=== PATIENT | male | born 1980 | race Caucasian/White ===

== ENCOUNTER 2022-10-09 10:09 | Emergency (ER) | payer BC, SELFPAY ==
--- NOTE | ~2022-10-09 | CT_ITS ---
EXAMINATION: CT ABDOMEN AND PELVIS WITHOUT CONTRAST CLINICAL INFORMATION: Right-sided flank pain COMPARISON: None available. TECHNIQUE: Multidetector volumetric imaging was performed from the superior aspect of the liver through the pubic symphysis. Sagittal and coronal reformatted images were obtained on the technologist's workstation. This CT examination was performed using dose optimization techniques as appropriate, variously including the following: *Automated exposure control *Adjustment of mA and/or kV according to patient size (this includes techniques or standardized protocols for targeted exams where dose is matched to indication/reason for exam; i.e. extremities or head) *Use of iterative reconstruction technique DLP: 593 mGy-cm FINDINGS: LUNG BASES: The visualized lung bases are unremarkable. LIVER, GALLBLADDER, AND BILIARY TREE: The liver is normal in size, shape, and attenuation. Some tiny benign subcentimeter hepatic cysts are present. No worrisome solid focal hepatic lesion or biliary ductal dilatation is present. The gallbladder is contracted and there is a question of high density material in the gallbladder suggesting gallstones. Fasting gallbladder ultrasound is recommended for further evaluation if clinically relevant. PANCREAS: Unremarkable. SPLEEN: Unremarkable. ADRENAL GLANDS: Unremarkable. KIDNEYS AND URETERS: Right: There is a 0.9 cm obstructing stone at the right ureteropelvic junction with mild associated right renal hydronephrosis. No other right-sided calculi are seen. The stone measures 840 Hounsfield units and is about 11 cm from the posterior axillary line. A benign 2.8 cm Bosniak class I renal cyst is noted which requires no additional imaging or follow-up. No solid renal masses are seen. The right ureter appears normal. Left: The left kidney appears appears normal aside from the presence of a 5 mm nonobstructing upper pole calculus. No hydronephrosis or renal masses are seen. The left ureter appears normal. BLADDER: Unremarkable. GASTROINTESTINAL TRACT: The small and large bowel are unremarkable. The appendix is unremarkable. ABDOMINAL WALL: No significant hernia is appreciated. Small bilateral inguinal hernias are seen containing fat. LYMPH NODES: Normal. VASCULAR: Unremarkable. PELVIC VISCERA: Mild enlargement of the prostate with normal-appearing seminal vesicles. OSSEOUS STRUCTURES: Unremarkable. CT/CT abdomen pelvis wo IV con IMPRESSION: 1. Obstructing 0.9 cm right ureteropelvic junction stone with mild hydronephrosis. 2. Nonobstructing 5 mm left renal calculus. 3. Incidental note made of hepatic cysts, contracted gallbladder with question of gallstones, mild BPH and small bilateral inguinal hernias containing fat. Fleischner guidelines were followed.
[2022-10-09 10:27] VITALS: BP 102/62; PULSE 61; RESP 16; TEMP 36.9; O2SAT 98; BMI 31.8
[2022-10-09 11:04] LABS: MANUAL DIFF FLAG NO
[2022-10-09 11:12] LABS: Basophils Percent Auto 0.5 % (0-2); Eosinophils Absolute Auto 0.1 X10*3/uL (0.0-0.4); Eosinophils Percent Auto 0.6 % (0-4); Hematocrit 41.5 % (42.0-52.0); Hemoglobin 14.3 g/dl (14.0-18.0); Imm Gran Abs Auto 0.04 X10*3/uL (0.00-0.03); Imm Gran Pct Auto 0.5 % (0.0-0.4); Lymphocytes Absolute Auto 1.4 X10*3/uL (1.2-4.9); Lymphocytes Percent Auto 15.5 % (20-40); Mean Corpuscular HGB Conc 34.5 g/dl (31.0-36.0); Mean Corpuscular Hemoglobin 29.4 pg (27.0-33.0); Mean Corpuscular Volume 85.2 fL (80.0-98.0); Mean Platelet Volume 10.3 fL (9.4-12.4); Monocytes Absolute Auto 0.5 X10*3/uL (0.1-1.2); Monocytes Percent Auto 5.7 % (2-11); Neutrophils Absolute Auto 6.7 x10*3/uL (2.0-8.3); Neutrophils Percent Auto 77.2 % (45-73); Platelet Count 197 X10*3/uL (160-400); Red Blood Count 4.87 X10*6/uL (4.60-5.80); Red Cell Distribution Width 12.5 % (11.0-16.0); White Blood Count 8.7 X10*3/uL (4.8-10.8)
[2022-10-09 11:23] LABS: Alanine Aminotransferase 18 U/L (0-40); Alkaline Phosphatase 70 U/L (39-117); Anion Gap 10 (12-20); Aspartate Amino Transferase 18 U/L (5-37); Bilirubin Total 0.5 mg/dL (0.0-1.0); Blood Urea Nitrogen 16 mg/dL (9-16); Calcium 9.5 mg/dL (8.4-10.2); Carbon Dioxide 25 mmol/L (22-29); Chloride 108 mmol/L (96-108); Creatinine Clr Calc Pharmacy 105.9; Estimated Glomerular Filt Rate > 60; Glucose Random 107 mg/dL (60-115); Potassium 4.3 mmol/L (3.3-5.1); Sodium 139 mmol/L (135-145); Total Protein 6.7 g/dL (6.5-8.0)
[2022-10-09 12:25] VITALS: BP 121/71; PULSE 60; RESP 18; TEMP 36.8; O2SAT 99
--- NOTE | 2022-10-09 12:27 | PC.NURSE ---
triage re-assessment, pt remains unable to pee. RME completed at this time
--- NOTE | 2022-10-09 12:30 | ED_ITS ---
HPI - Male Genitourinary General Chief complaint: Urogenital-Male Stated complaint: back pain blood in urine Time Seen by Provider: 10/09/22 12:56 Source: patient, RN notes reviewed and old records reviewed Mode of arrival: ambulatory History of Present Illness HPI Narrative: 42-year-old male with past medical history of renal stones presenting to the ED complaining of nonradiating right-sided low back pain, hematuria, urinary hesitancy, & nausea x 2 days. Reports straining to urinate. Denies fever/chills, vomiting, diarrhea, dysuria, urinary incontinence/retention, injury. Admits pain feels similar to prior renal stones Onset (ago): day(s) Related Data Previous Rx's Medication Instructions Recorded naproxen 375 mg tablet 375 mg PO BID PRN pain 14 days #28 10/09/22 tabs prednisone 20 mg tablet 20 mg PO BID 3 days #6 tabs 10/09/22 tamsulosin 0.4 mg capsule (Flomax) 0.4 mg PO DAILY #21 caps 10/09/22 Allergies Allergy/AdvReac Type Severity Reaction Status Date / Time No Known Allergies Allergy Verified 10/09/22 10:34 Review of Systems Review of Systems: Constitutional: No Fever, No Chills, No Fatigue, No Malaise ENT/Mouth: No Hearing loss, No Ear Pain, No sore throat, No Rhinorrhea, No Swallowing Difficulty Eyes: No Eye Pain, No Swelling, No Redness, No Vision Changes Cardiovascular: No Chest Pain, No SOB Respiratory: No Cough, No Sputum, No Dyspnea Gastrointestinal: + Nausea, No Vomiting, No Diarrhea, No Constipation, No Abdominal pain Genitourinary: No irregular bleeding, No Dysuria, No Urinary Frequency, + Hematuria, No Urinary Incontinence/retention, No Flank Pain, No Urinary Flow Changes, + Hesitancy Musculoskeletal: No joint pain, No Myalgias, No Joint Swelling Skin: No Skin Lesions, No rash Neuro: No Weakness, No Headache Yes all other systems are reviewed and are negative Constitutional: Constitutional: Reports as per [facility] Past Medical History Attestation statement: The following information was validated with the patient. Source: old records reviewed Social History Social History Alcohol intake: current Alcohol intake frequency: a few times a week Smoked in Last 30 Days: No Use of substances other than those prescribed or required for medical reasons: No Advance Directives: No Advance Directives Information Provided: No Physical Exam Vital Signs: Vital Signs: Last Vital Signs Temp 98.2 F 10/09/22 12:25 Pulse 62 10/09/22 13:10 Resp 18 10/09/22 13:10 BP 123/68 10/09/22 13:10 Pulse Ox 99 10/09/22 12:25 O2 Del Method Room Air 10/09/22 12:25 BMI result Body Mass Index 31.8 Const: General: cooperative, healthy appearing and no acute distress O rientation/consciousness: patient oriented x3 Limitations: no limitations HEENT: Head: Yes normal to inspection and Yes atraumatic Ears: hearing grossly normal bilaterally General nose exam: Normal external nose present Face and sinus: Yes normal facial exam Eyes: General: appearance normal, both eyes and all related structures EOM: EOMs intact bilaterally Neck: Neck: Yes normal visual inspection and Yes no meningeal signs Resp: Effort & Inspection: normal respiratory effort and no respiratory distress Auscultation: clear to auscultation bilaterally Cardio: Rate: regular rate Heart sounds: S1 normal heart sound present and S2 normal heart sound present GI: Inspection: Yes normal to inspection Palpation (GI): Soft to palpation, nontender, no guarding and not rigid : General: Yes no CVA tenderness Back/Spine/Pelvis: Other: No midline cervical/thoracic/lumbar spinous tenderness/step-off or deformity. Back pain not reproducible. No rash/erythema or ecchymosis Back: no CVA tenderness Skin: Rashes: no rashes Wounds: no wounds Neuro: Other: Strength intact throughout. No saddle anesthesia. Sensation intact to light touch. Neurovascular intact distally General: patient oriented x3, gait normal, tone normal, moves all extremities, no meningeal signs, no focal motor deficits and CN's II-XI intact bilaterally Gait exam (Neuro): Normal gait present Motor exam (neuro): 5/5 motor strength present throughout Extrem: General: Yes normal to inspection Course Course Course Narrative: This is an RME: Additional HPI, ROS, PE not included below will be deferred to primary provider. 42 yo M presents w/ right sided flank pain and difficulties w/ urination X3 days. 2 days ago noted blood in urine. Concerned he has a kidney stone hx of this. No fevers or chills Plan: labs, UA, imaging -1418--no leukocytosis. Labs otherwise reassuring. UA with blood/rbc's, not infected CT abdomen pelvis wo IV con IMPRESSION: 1.? Obstructing 0.9 cm right ureteropelvic junction stone with mild hydronephrosis. 2.? Nonobstructing 5 mm left renal calculus. 3.? Incidental note made of hepatic cysts, contracted gallbladder with question of gallstones, mild BPH and small bilateral inguinal hernias containing fat. ? Fleischner guidelines were followed. -On re-evaluation patient is sleeping comfortably. Reports symptomatic improvement > will consult urology, Dr. Campos > she recommended if we can get patient comfortable to discharge with prednisone 20 mg b.i.d. x3 days, Flomax 0.4 mg daily times 21 days, naproxen 375 mg b.i.d., and follow up in the office in 7-10 days -patient feels safe for discharge home at this time. 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 Discussed strict return precautions and when to return to the ED pertaining to renal stone, and need close follow-up with Urology. Also discussed hepatic cyst/gallstones and inguinal hernias, recommended GI and PCP follow-up Results discussed with patient including worrisome signs and symptoms and strict return precautions, and when to return to the emergency department. They verbalized understanding and feel safe for discharge at this time. Medications Administered Discontinued Medications Generic Name Dose Route Start Last Admin Trade Name Freq PRN Reason Stop Dose Admin Ketorolac Tromethamine 30 mg 10/09/22 13:10 10/09/22 13:17 Ketorolac Tromethamine 30 Mg/Ml Vial IM 10/09/22 13:11 30 mg ONCE ONE Administration Ondansetron HCl 4 mg 10/09/22 13:10 10/09/22 13:18 Ondansetron Odt 4 Mg Tab.Rapdis TRANSLINGU 10/09/22 13:11 4 mg ONCE ONE Administration Medical Decision Making Medical Decision Making MDM Narrative: 42-year-old male with past medical history of renal stones presenting to the ED complaining of nonradiating right-sided low back pain, hematuria, urinary hesitancy, & nausea x 2 days. On exam vital signs stable, NAD, nontoxic appearing, abdomen soft/nontender, no CVAT, back pain not reproducible, no saddle anesthesia. Concern for renal colic/stone vs UTI/pyelo vs MSK pain/strain. Lower suspicion for appendicitis/diverticulitis, cholecystitis/lithiasis, cauda equina or cord compression Plan: Labs, UA, CT, IM Toradol, Zofran, re-evaluate Please refer to course for remaining clinical decision making, interpretation of labs/imaging results, and discussions with consultants and/or family members. Differential Diagnosis Differential Diagnoses: The differential diagnosis associated with the presentation includes As above Admission/Observation Consideration of admission/observation: Escalation of care including admission/observation considered Consult Healthcare Provider Management of the patient was discussed with: [employer]inter (Urology Dr. Campos) Lab Data MDM Lab Attestation statement: I reviewed the patient's lab results. 10/09/22 11:01 10/09/22 11:01 Labs: Lab Results 10/09/22 10/09/22 10/09/22 Range/Units 11:01 11:01 13:14 WBC 8.7 (4.8-10.8) X10*3/uL RBC 4.87 (4.60-5.80) X10*6/uL Hgb 14.3 (14.0-18.0) g/dl Hct 41.5 L (42.0-52.0) % MCV 85.2 (80.0-98.0) fL MCH 29.4 (27.0-33.0) pg MCHC 34.5 (31.0-36.0) g/dl RDW 12.5 (11.0-16.0) % Plt Count 197 (160-400) X10*3/uL MPV 10.3 (9.4-12.4) fL Immature Gran % (Auto) 0.5 H (0.0-0.4) % Neut % (Auto) 77.2 H (45-73) % Lymph % (Auto) 15.5 L (20-40) % [place] % (Auto) 5.7 (2-11) % Eos % (Auto) 0.6 (0-4) % Baso % (Auto) 0.5 (0-2) % Lymph # (Auto) 1.4 (1.2-4.9) X10*3/uL [place] # (Auto) 0.5 (0.1-1.2) X10*3/uL Eos # (Auto) 0.1 (0.0-0.4) X10*3/uL Baso # (Auto) 0.0 (0.0-0.2) X10*3/uL Abs Immat Gran (auto) 0.04 H (0.00-0.03) X10*3/uL Absolute Neuts (auto) 6.7 (2.0-8.3) x10*3/uL Absolute Nucleated RBC 0.000 (0.0-0.012) X10*3/uL Nucleated RBC % (auto) 0.0 (0.0-0.2) /100WBC Sodium 139 (135-145) mmol/L Potassium 4.3 (3.3-5.1) mmol/L Chloride 108 (96-108) mmol/L Carbon Dioxide 25 (22-29) mmol/L Anion Gap 10 L (12-20) BUN 16 (9-16) mg/dL Creatinine 0.97 (0.5-1.4) mg/dL Estim Creat Clear Calc 105.9 Estimated GFR > 60 Random Glucose 107 (60-115) mg/dL Calcium 9.5 (8.4-10.2) mg/dL Total Bilirubin 0.5 (0.0-1.0) mg/dL AST 18 (5-37) U/L ALT 18 (0-40) U/L Alkaline Phosphatase 70 (39-117) U/L Total Protein 6.7 (6.5-8.0) g/dL Albumin 4.0 (3.5-5.0) g/dL Lipase 15 (8-78) U/L Urine Color Yellow Urine Appearance Clear Urine pH 6.5 (5.0-9.0) Ur Specific [place] >= 1.030 H (1.005-1.025) Urine Protein 30 (1+) H (Neg-Trace) mg/dL Urine Glucose (UA) Negative (Negative) mg/dL Urine Ketones Trace (Negative) mg/dL Urine Blood Moderate (2+) H (Negative) Urine Nitrite Negative (Negative) Ur Leukocyte Esterase Negative (Negative) Urine RBC >20 H (0-2) /HPF Urine WBC 0-5 (0-5) /HPF Ur Squamous Epith Cells 0-2 (0-2) /HPF Urine Bacteria None Seen (None Seen) Hyaline Casts 0-2 (0-2) /LPF Radiology Impression Discussion of test interpretation with radiology: I have reviewed the radiologist's reading. External Record Review External record reviewed: Inpatient record, Office record, Outpatient record, Prior outpatient labs, Prior outpatient radiology, Primary care record and Outside ED record Tests considered The following testing was considered but not selected: As above Prescription Management I considered prescription management with: Pain Medication Discharge Plan Discharge Clinical Impression: Obstruction of right ureteropelvic junction (UPJ) due to stone, Bilateral inguinal hernia, Hepatic cyst, Gallbladder contraction Patient Disposition: Home, Self-Care Instructions: Inguinal Hernia (ED), Ureteral Stones (ED) Additional Instructions: Your blood work is reassuring. your CT scan shows an obstructing 0.9 cm stone on your right side. You also have incidental findings of hepatic cysts, gallstones, and small bilateral inguinal hernias Prednisone as a steroid which will help with inflammation. Naproxen as anti- inflammatory pain medication, take with food Flomax will help dilate your ureter to aid with stone passage YOU NEED TO FOLLOW-UP WITH UROLOGY IN 7-10 DAYS If your symptoms persist/become a bearable, persistent nausea/vomiting, fever, your unable to urinate return to the ED Avoid heavy lifting with her hernias You should follow-up with Gastroenterology/general surgery and your PCP Sol an?lisis de pato es tranquilizador. sol tomograf?a computarizada muestra un c?lculo obstructivo de 0,9 cm en sol lado derecho. Tambi?n tiene hallazgos incidentales de quistes hep?ticos, c?lculos biliares y lucia?as hernias inguinales bilaterales. Prednisona rafi un esteroide que ayudar? con la inflamaci?n. Naproxeno rafi analg?sico antiinflamatorio, julio cesar con alimentos Flomax ayudar? a dilatar sol ur?ter para ayudar con el paso de c?lculos NECESITAS SEGUIMIENTO CON UROLOG?A EN 7-10 D? Si hope s?ntomas persisten/se vuelven soportables, n?useas/v?mitos persistentes, fiebre, no puede orinar, regrese al servicio de urgencias. Evite levantar objetos pesados ??con hope hernias Debe realizar un seguimiento con Gastroenterolog?a/cirug?a general y sol PCP Prescriptions: New prednisone 20 mg tablet 20 mg PO BID 3 Days Qty: 6 0RF tamsulosin [Flomax] 0.4 mg capsule 0.4 mg PO DAILY Qty: 21 0RF naproxen 375 mg tablet 375 mg PO BID PRN (Reason: pain) 14 Days Qty: 28 0RF Referrals: [facility] [place] Group] [facility] [place] Group] - 1 week (7-10 days) Stand Alone Forms: Work/School Release Interventions: ED Discharge Assessment Last Done: 10/09/22 15:26 Print Language: Tunisian
[2022-10-09 13:10] VITALS: BP 123/68; PULSE 62; RESP 18
[2022-10-09] MEDS: Ketorolac Tromethamine 30 MG/ML VIAL IM (13:17)
[2022-10-09] MEDS: Ondansetron ODT 4 MG TAB.RAPDIS TRANSLINGU (13:18)
[2022-10-09 13:22] LABS: Lipase 15 U/L (8-78)
[2022-10-09 13:29] LABS: Appearance Urine Clear; Color Urine Yellow; Glucose Urine UA Negative (Negative); Leukocyte Esterase Urine Negative (Negative); Nitrite Urine Negative (Negative); PH 6.5 (5.0-9.0); Specific Gravity - Urine >= 1.030 (1.005-1.025); UMIC TRIGGER UACC YES; Urine Blood Moderate (2+) (Negative); Urine Ketones Trace mg/dL (Negative); Urine Protein 30 (1+) mg/dL (Neg-Trace)
[2022-10-09 13:38] LABS: Bacteria Urine None Seen (None Seen); Hyaline Casts Urine 0-2 /LPF (0-2); RBC Urine >20 /HPF (0-2); Squamous Epithelial Cell Urine 0-2 /HPF (0-2); WBC Urine 0-5 /HPF (0-5)
== END 2022-10-09 15:26 | disposition home or self-care (01) ==
PROVIDERS: Physician Assistant; Emergency Provider Emergency Medicine
DX: N13.5 Crossing vessel and stricture of ureter without hydronephrosis (principal); N20.1 Calculus of ureter; K40.20 Bilateral inguinal hernia, without obstruction or gangrene, not specified as recurrent; K76.89 Other specified diseases of liver; K82.0 Obstruction of gallbladder; R31.9 Hematuria, unspecified; M54.50 Low back pain, unspecified; R39.11 Hesitancy of micturition; R11.0 Nausea; Z87.442 Personal history of urinary calculi
CPT/HCPCS: 36415; 74176; 80053; 81001; 83690; 85025; 96372; 99284; J1885

== ENCOUNTER 2022-11-07 12:36 | Outpatient (AMB) | payer BC, SELFPAY ==
--- NOTE | 2022-11-07 13:04 | MHC.OFFVIS ---
Intake Intake Visit Reasons: ER follow up-UPJ obstructing stone Intake Note: New Patient presents for ER follow up UPJ obstructing stone Urology Medications: none Blood Thinner: none Egg Caser Required: No Accompanied by: Self / Same As Patient Allergies No Known Allergies Allergy (Verified 11/10/22 13:49) Medication List - Last Reconciled 11/10/22 by BASIM Hampton No Known Home Meds HPI HPI Comments History of Present Illness Details Prince is a very pleasant 42-year-old male patient. He presents to the office today as new patient for nephrolithiasis. He reports approximately one month ago seeking emergency room care for right sided flank pain at which time was instructed to follow-up with Urology for findings of nephrolithiasis on CT. These results were reviewed with the patient today. Obstructing 0.9 right ureteropelvic junction stone with mild hydronephrosis. Nonobstructing 5 mm left renal calculus. Mild BPH and small bilateral inguinal hernias are noted. When asked patient reports continued right-sided flank pain. He denies any previous history of nephrolithiasis and or surgical history of nephrolithiasis. Discussed at length potential causes for nephrolithiasis. Discussed given pain and noted hydronephrosis surgical intervention for treatment of stone. Discussed at length importance of drinking plenty of water daily. Patient otherwise denies any urinary issues or concerns at this time. He denies urinary urgency, urinary frequency, incontinence, nocturia, hematuria, dysuria, foul smelling urine, changes to urinary stream, fever, and or chills. He is happy with his current voiding parameters. Discussed at length cystoscopy, retrograde, ureteroscopy, possible lithotripsy/stone basketing and stent on the right side. Discussed risks and benefits of the surgical procedure. All questions were answered. Patient otherwise denies any issues or concerns at this time. [facility] Social History Alcohol intake: current Alcohol intake frequency: a few times a week Review of Systems Const All systems reviewed & are unremarkable except as noted in HPI and below Reports no additional complaints Eyes Reports no additional complaints ENT Reports no additional complaints Card Reports no additional complaints Resp Reports no additional complaints GI Reports no additional complaints Reports as per HPI Musc Reports no additional complaints Neuro Reports no additional complaints Psych Reports no additional complaints Endo Reports no additional complaints Rafa/Lymph Reports no additional complaints Aller/Immun Reports no additional complaints Physical Exam Const General: cooperative, healthy appearing, comfortable, no acute distress, well developed, alert and awake Orientation/consciousness: patient oriented x3 Limitations: no limitations HEENT Head: Yes normal to inspection, Yes normocephalic and Yes atraumatic Ears: hearing grossly normal bilaterally Eyes General: appearance normal, both eyes and all related structures Neck Neck: Yes normal visual inspection and Yes trachea midline Chest Chest palpation & inspection: normal inspection of the chest Resp Effort & Inspection: normal respiratory effort and able to speak in complete sentences Cardio Rate: regular rate GI Inspection: Yes normal to inspection General: Yes CVA tenderness bilateral Back/Spine/Pelvis Back: CVA tenderness Skin General skin exam: no rashes or lesions noted Neuro General: patient oriented x3 Extrem General: Yes normal to inspection Psych Appearance: grossly normal and well kempt Mental Status: mental status grossly normal Speech and movement: Normal speech and movement present and Clear speech present Affect: normal affect Attitude: cooperative Thought process: Normal thought process present Thought content: Normal thought content present Insight: Good insight present (Psych) Judgement: Good judgement present (Psych) Results AMB Urinalysis, Automated UA Leukoctes 0 Dyllan/uL Last Edit by [employer] on 11/07/22 13:27 UA Nitrite Last Edit by [employer] on 11/07/22 13:27 UA Urobilinogen 0.2 mg/dL Last Edit by [employer] on 11/07/22 13:27 UA Protein 0 mg/dL Last Edit by [employer] on 11/07/22 13:27 UA pH 7.0 Last Edit by [employer] on 11/07/22 13:27 UA Blood 0 Sher/uL Last Edit by [employer] on 11/07/22 13:27 UA Specific [place] 1.015 Last Edit by [employer] on 11/07/22 13:27 UA Ketone Negative Last Edit by [employer] on 11/07/22 13:27 UA Bilirubin 0 mg/dL Last Edit by [employer] on 11/07/22 13:27 UA Glucose 0 mg/dL Last Edit by [employer] on 11/07/22 13:27 Results Reviewed Results Reviewed: Laboratory Last Values Urine pH (Auto) 7.0 11/07/22 13:06 Specific [place] (Auto) 1.015 11/07/22 13:06 Urine Protein (Auto) 0 mg/dL 11/07/22 13:06 Glucose (UA)(Auto) 0 mg/dL 11/07/22 13:06 Urine Ketones (Auto) Negative 11/07/22 13:06 Urine Blood (Auto) 0 Sher/uL 11/07/22 13:06 Urine Bilirubin (Auto) 0 mg/dL 11/07/22 13:06 Urine Urobilinogen (Auto) 0.2 mg/dL 11/07/22 13:06 Leukocyte Esterase (Auto) 0 Dyllan/uL 11/07/22 13:06 Date of Service: 10/09/22 EXAMINATION: CT ABDOMEN AND PELVIS WITHOUT CONTRAST? FINDINGS: LUNG BASES: The visualized lung bases are unremarkable.? LIVER, GALLBLADDER, AND BILIARY TREE: The liver is normal in size, shape, and attenuation. Some tiny benign subcentimeter hepatic cysts are present. No worrisome solid focal hepatic lesion or biliary ductal dilatation is present. The gallbladder is contracted and there is a question of high density material in the gallbladder suggesting gallstones. Fasting gallbladder ultrasound is recommended for further evaluation if clinically relevant.? PANCREAS: Unremarkable.? SPLEEN: Unremarkable.? ADRENAL GLANDS: Unremarkable.? KIDNEYS AND URETERS: Right: There is a 0.9 cm obstructing stone at the right ureteropelvic junction with mild associated right renal hydronephrosis. No other right-sided calculi are seen. The stone measures 840 Hounsfield units and is about 11 cm from the posterior axillary line. A benign 2.8 cm Bosniak class I renal cyst is noted which requires no additional imaging or follow-up. No solid renal masses are seen. The right ureter appears normal. Left: The left kidney appears appears normal aside from the presence of a 5 mm nonobstructing upper pole calculus. No hydronephrosis or renal masses are seen. The left ureter appears normal. BLADDER: Unremarkable.? GASTROINTESTINAL TRACT: The small and large bowel are unremarkable. The appendix is unremarkable.? ABDOMINAL WALL: No significant hernia is appreciated. Small bilateral inguinal hernias are seen containing fat. LYMPH NODES: Normal. VASCULAR: Unremarkable. PELVIC VISCERA: Mild enlargement of the prostate with normal-appearing seminal vesicles.? OSSEOUS STRUCTURES: Unremarkable.? CT/CT abdomen pelvis wo IV con IMPRESSION: 1.? Obstructing 0.9 cm right ureteropelvic junction stone with mild hydronephrosis. 2.? Nonobstructing 5 mm left renal calculus. 3.? Incidental note made of hepatic cysts, contracted gallbladder with question of gallstones, mild BPH and small bilateral inguinal hernias containing fat. ? Fleischner guidelines were followed. Assessment & Plan Assessment & Plan (1) Bilateral nephrolithiasis: Code(s): N20.0 - Calculus of kidney (2) Hydronephrosis: Code(s): N13.30 - Unspecified hydronephrosis (3) Flank pain: Code(s): R10.9 - Unspecified abdominal pain Plan: Ureteroscopy We discussed the nature of the decision and reasonable alternatives for performing ureteroscopy. Options such as medical therapy were discussed. Interventions include chemical dissolution, ESWL, ureteroscopy with laser lithotripsy and stent placement, PCNL. The relative uncertainties and benefits related to each alternate procedure were adequately discussed. General surgical risks including, but not limited to - pain, bleeding, infection, myocardial infarction, pulmonary embolus, deep vein thrombosis and cerebrovascular accident which may result in further hospitalization were discussed.? Full disclosure of the procedure as well as all major risks, benefits and complications were discussed including but not limited to damage to the urethra, bladder and kidney infection, damage to the ureter, stent migration or malposition, scarring to the renal pelvis, remnant stone fragments, subsequent stone passage with need for secondary procedures. The overall secondary procedure rate is approximately 10-15%.? The overall clearance rate is approximately 90-95%. Success of the procedure in the short-term does not necessarily guarantee that long-term success will be maintained. Suitable follow up will need to be maintained. The patient showed understanding of discussion and wishes to proceed with - cystoscopy, retrograde, ureteroscopy, possible lithotripsy/stone basketing and stent on the right side. Plan The in office urinalysis results reviewed with the patient today; as noted above. Recent CT imaging results reviewed with the patient; as noted above. Discussed at length surgical intervention for obstructing right-sided renal calculi noted on CT. Discussed risks and benefits at length. Discussed, educated, and instructed on the importance of drinking plenty of water daily. Start vitamin B6 as discussed and prescribed. Patient otherwise denies any urinary issues or concerns at this time. He is happy with current voiding parameters. Will schedule for surgical procedure with Dr. Arreguin as discussed and planned. Follow-up status post ureteroscopy per Dr. Arreguin's orders; or sooner with any issues, concerns, and or questions. Orders: Orders AMB Urinalysis Automated 11/07/22 Z13.9 - Encounter for screening, unspecified Patient Instructions: The patient had an opportunity to ask questions regarding the treatment plan. All questions were answered. Physical exam, labs, and imaging were discussed and reviewed in detail. As well as risks, benefits, and discussion of treatment choices. No major barriers to understanding were identified. The patient expressed understanding and agreement with the above treatment plan. The patient was made aware they should contact our office by phone for worsening of their current condition, the appearance of new symptoms, or with any questions or concerns. Compliance is encouraged with any medications and follow up testing that is ordered. It is a privilege to be allowed the opportunity to participate in? your urological care.? Again, if you have any questions or concerns If you have any questions or concerns please do not hesitate to contact me. The office is [phone]. This note is constructed using voice recognition software. While every effort has been made to ensure accuracy mushroom cutter errors may have been included. Yours sincerely, BASIM Hampton Coding Level of Care Code New Pt Level 4 (23332) Diagnoses Bilateral nephrolithiasis N20.0 Hydronephrosis N13.30 Flank pain R10.9
== END 2022-11-07 13:56 ==
PROVIDERS: Visit Provider Nurse Practitioner Family
DX: N20.0 Calculus of kidney (principal); N13.30 Unspecified hydronephrosis; R10.9 Unspecified abdominal pain
CPT/HCPCS: 99204

== ENCOUNTER → 2022-11-07 12:36 | Outpatient (BNVA) | payer BC, SELFPAY | PROVIDERS: Visit Provider Nurse Practitioner Family ==

== ENCOUNTER 2022-11-14 14:07 | Day surgery (SDC) | payer BC, SELFPAY ==
--- NOTE | ~2022-11-14 | FL_ITS ---
EXAMINATION: XR FLUOROSCOPY WITH IMAGES CLINICAL INFORMATION: Cystoscopy, ureteroscopy, retro, laser with stent. COMPARISON: CT of the abdomen and pelvis September 2022 TECHNIQUE: Fluoroscopy Supervised By: Dr. David Arreguin. Fluoroscopy Time: 51.6 seconds. Cumulative Dose: 12.70 mGy. DAP: N/A. Images: 4. FINDINGS: Images demonstrate contrast opacification of the right renal collecting system and ureter. Final images demonstrate placement of a right internal ureteral stent. FL/FL guidance in OR IMPRESSION: Fluoroscopic guidance for right retrograde pyelogram and stent placement.
[2022-11-14 15:18] VITALS: BMI 31.5
[2022-11-14 15:19] VITALS: BMI 31.5
--- NOTE | 2022-11-14 15:27 | HO.ANESPROP2 ---
HPI - Anesthesia Eval Consult details Narrative: for cysto ureteroscopy PMFSH Active Problems Active Problems: All Active Problems (Updated 11/10/22 @ 14:10 by BASIM Hampton) Bilateral nephrolithiasis (Acute) Hydronephrosis (Acute) Flank pain (Acute) Family History Family history of problems with anesthesia: No Surgical History Surgical History Hx of hand surgery History of Problems with Anesthesia: No Social History Social History Alcohol intake: current Alcohol intake frequency: a few times a week Advance Directives: No Advance Directives Information Provided: Yes Meds Allergies Allergy/AdvReac Type Severity Reaction Status Date / Time No Known Allergies Allergy Verified 11/10/22 13:49 Home Medications Medication Instructions Recorded Confirmed Last Taken Type No Known Home Meds 11/10/22 Unknown History Exam Exam Date and Time: November 14, 2022 1527 Height,Weight and Vital Signs: Height 5 ft 6 in Weight 88.451 kg Airway Mallampati Class: II TM Dist: >3cm Neck ROM: Full Heart: rrr Lungs: cta Assessment and Plan Assessment Anesthesia Assessment: Anesthesia Plan Discussed, Smoking Cess. Discussed and Chart Reviewed Final Anesthetic Review Family History of Problems with Anesthesia: No History of Problems with Anesthesia: No NPO: Yes ASA Class: II Final Preanesthetic Review: No Changes in Pt Med Stat, Meds/Allgs Chart Reviewed, Consent Obtained/Reviewed and Anes Risks/Benef Reviewed Patient Risk: Intermediate (smoker, smoked till one hour ago) Procedure Risk: Low Anesthetic Plan Anesthetic Plan: GA Disposition: Standard PACU
[2022-11-14] MEDS: Acetaminophen 1,000 MG/100 ML PIGGYBACK 400 MG IV (15:46)
[2022-11-14] MEDS: Albuterol Sulfate (0.083%) 2.5 MG/3 ML VIAL.NEB INHALE (15:53)
[2022-11-14 15:56] VITALS: PULSE 58; RESP 16; O2SAT 98
[2022-11-14] MEDS: Lactated Ringers 500 ML 20 ML IVCONT (15:58)
--- NOTE | 2022-11-14 16:57 | MHC.SHP ---
Pre-Procedural Eval Section A Date of Service: 11/14/22 The patient is an INPATIENT: No Changes since office visit: Yes Cold of Flu in the past 2 weeks, Yes New Medical Problems, Yes Changes in Medication and Yes Patient answered all questions The History & Physical has been completed within 30 days and I have reviewed it.: Yes Section B Chief Complaint: Calculus of kidney Details of Present Illness: right proximal ureter Allergies: Allergies Allergy/AdvReac Type Severity Reaction Status Date / Time No Known Allergies Allergy Verified 11/10/22 13:49 Plan Diagnosis/Plan: Unchanged ( cystoscopy, right retrograde, right ureteroscopy laser lithotripsy stent placement) I have reviewed the history and physical and performed a pertinent physical examination on my patient. No changes have occurred unless specified. Time Spent With Patient Time: Total time managing care of this patient today ____ minutes.
--- NOTE | 2022-11-14 17:39 | P.OP_ITS ---
Operative Note Operative Note Date of Service: 11/14/22 Narrative: PreOperative Diagnosis: right proximal ureteric stone Post Operative Diagnosis: right proximal ureteric stone Procedure: - cystoscopy, right retrograde - right dilatation of ureteric orifice under fluoroscopy - right flexible ureteroscopy, laser lithotripsy, stone basketing - right stent placement Surgeon: Dr David Arreguin Anesthesia: General Indications for procedure: right proximal ureteric stone impacted. Time frame unclear. Procedure: After informed consent was verified patient was brought to the operating placed in supine position. Anesthesia was administered per protocol. Patient was placed in modified dorsal lithotomy position and prepped and draped in a sterile fashion. Safety pause time-out and side of surgery confirmed. Antibiotics confirmed. 22 [place] cystoscope was inserted per urethra. Bladder was normal in its e ntirety. Both ureteric orifices were in normal position. The Right ureteric orifice was cannulated and a retrograde examination was performed. filling defect junction between right proximal and right mid ureter. A Sensor guidewire was placed up to the level of the renal pelvis under fluoroscopy. The rigid cystoscope was removed and the inner cannula of ureteric access sheath was used under fluoroscopy to dilate the ureteric orifice. The ureteric access sheath was placed and the inner cannula with access wire removed. The digital flexible ureteral scope was placed. stone was encountered and using a 272 holmium fiber was broken into small pieces. Fragments were removed using a ZeroTip basket. At the completion of the stone procedure a Sensor wire was placed back into the renal pelvis. The rigid cystoscope was backloaded over the wire and advanced into the bladder. A 6 [place] by 26 cm double-J stent was placed into the renal pelvis and bladder under a combination of fluoroscopy and direct visualization. The bladder was emptied. The patient tolerated the procedure well and was extubated in the operating room, and transferred in stable condition to the recovery area. Pathology: stones Drains: stent
[2022-11-14 17:47] VITALS: BP 138/76; PULSE 79; RESP 18; TEMP 36.2; O2SAT 98
[2022-11-14 17:52] VITALS: BP 141/62; PULSE 83; RESP 16; O2SAT 98
[2022-11-14] MEDS: Phenazopyridine HCL 100 MG TABLET PO (17:54)
[2022-11-14 17:57] VITALS: BP 134/61; PULSE 87; RESP 14; O2SAT 99
[2022-11-14 18:02] VITALS: BP 129/68; PULSE 72; RESP 12; O2SAT 99
[2022-11-14 18:17] VITALS: BP 135/73; PULSE 73; RESP 14; TEMP 36.1; O2SAT 99
[2022-11-21 18:13] LABS: Stone Source RIGHT URETERAL STONE
== END 2022-11-14 18:25 | disposition home or self-care (01) ==
PROVIDERS: Visit Provider Urology
PROC: (CPT 52356; principal; 2022-11-14 16:30)
DX: N13.2 Hydronephrosis with renal and ureteral calculous obstruction (principal); R10.9 Unspecified abdominal pain; N40.0 Benign prostatic hyperplasia without lower urinary tract symptoms; N28.1 Cyst of kidney, acquired
CPT/HCPCS: 52356; 82365; 88300; 94640; C1758; C1769; C1894; C2617; J0131; J1100; J1885; J1956; J2405; J3010; Q9967

== ENCOUNTER → 2022-11-14 14:07 | Outpatient (BNV) | payer BC, SELFPAY | PROVIDERS: Visit Provider Urology | DX: N20.1 Calculus of ureter (principal) | CPT/HCPCS: 52356; 74420 ==

== ENCOUNTER 2022-11-26 12:28 | Outpatient (AMB) | payer BC, SELFPAY ==
--- NOTE | 2022-11-26 12:34 | MHC.OFFVIS ---
Intake Intake Visit Reasons: post op Stent removal Intake Note: Patient is present for Cystoscopy and Stent Removal Urology Med: Tamsulosin, Solifenacin Antibiotic Allergy:none Blood Thinner: None [facility] C[facility] used during Procedure LOT#:[id number] EXP: 09/01/2024 Allergies No Known Allergies Allergy (Verified 11/26/22 12:35) Medication List - Last Reconciled 11/26/22 by David Arreguin MD betamethasone dipropionate 0.05% 1 appl topical BID naproxen 500 mg PO BID PRN 7 days phenazopyridine (Pyridium) 100 mg PO TID PRN 4 days solifenacin 5 mg PO DAILY 14 days tamsulosin 0.4 mg PO BEDTIME 14 days HPI HPI Comments History of Present Illness Details Prince is very pleasant [place]ymra[place]-speaking male. He is seen for the following urologic conditions - nephrolithiasis - phimosis Here for stent removal Initiate steroid therapy for phimosis - felt to improve in 4 weeks would need to circumcision Nephrolithiasis Presentation through ER with obstructing pain First-time stone presentation No family history Not drinking enough fluid Intervention - 12/03 right ureteroscopy Stone composition - 12/03 Calcium oxalate monohydrate Imaging - 12/03 0.9 cm right UPJ stone Recommendations - increase fluid - surveillance imaging - vitamin B6 Phimosis Difficulty retracting foreskin Trial topical therapy PFSH Surgical History Hx of hand surgery Social History Alcohol intake: current Alcohol intake frequency: a few times a month Patient Tobacco Use Status: Current everyday Tobacco user Tobacco use type: Cigarette Cigarettes Per Day: 7 Years Smoked: 25 Review of Systems Const Denies chills and Denies fever(s) Card Reports no additional complaints and Denies syncope Resp Denies cough GI Denies abdominal pain and Denies heartburn Reports as per HPI and Denies change in libido Neuro Denies syncope Psych Denies change in libido Endo Denies change in libido Physical Exam Const General: cooperative, healthy appearing, comfortable and no acute distress Orientation/consciousness: patient oriented x3 HEENT Face and sinus: Yes normal facial exam Mouth: moist mucous membranes Neck Neck: Yes normal visual inspection, Yes full ROM and Yes trachea midline Chest Chest palpation & inspection: normal inspection of the chest Resp Effort & Inspection: normal respiratory effort, able to speak in complete sentences and no respiratory distress GI Inspection: Yes normal to inspection Back/Spine/Pelvis Cervical Spine: normal cervical lordosis Thoracic/Lumbar Spine: thoracic and lumbar spine normal to inspection Skin General skin exam: no rashes or lesions noted Neuro General: patient oriented x3, gait normal, tone normal and moves all extremities Extrem General: Yes normal to inspection and Yes capillary refill normal Office Procedures Cystoscopy Consent Discussed risk and benefit or proposed procedure with the patient. Information consent for procedure given to the patient. Discussed technical aspects, risks, benefits and alternatives in full. Addressed all of the patient's questions and concerns regarding the procedure. The patient demonstrated knowledge and understanding. They wish to proceed with this procedure. Preparation The patient was prepped in the usual manner. A coach builder was present and in the room. Genitalia was prepped with betadine solution in a sterile manner. Lidocaine Jelly 2% was placed into the urethra and 16Fr flexible Olympus cystoscope was inserted into the meatus after adequate lubrication. Procedure A well lubricated 16 [place] Island[place] cystoscope was placed No abnormality noted of urethra during placement Indwelling stent seen within bladder emerging from right ureteric orifices The stent was grasped with a 3 prong grasper and removed without difficulty The patient tolerated the procedure well [id number] with stent removal DISPOSABLE SCOPE URO-G FLEXIBLE SCOPE Procedure code (CPT) selection complete Office Meds lidocaine HCl Performing Provider: David Arreguin MD Administered by: Aria Jenkins RN on 11/26/22 12:57 Dose Route Admin Location Lot Number Expiration Date NDC Immunohematologist 10 mL intra-urethral nitrofurantoin monohyd/m-cryst 100 mg Performing Provider: David Arreguin MD Administered by: Aria Jenkins RN on 11/26/22 12:57 Dose Route Admin Location Lot Number Expiration Date NDC Immunohematologist 100 mg PO naproxen Performing Provider: David Arreguin MD Administered by: Aria Jenkins RN on 11/26/22 12:57 Dose Route Admin Location Lot Number Expiration Date NDC Immunohematologist 500 mg PO Results AMB Urinalysis, Automated UA Leukoctes 70 Dyllan/uL Last Edit by ADIEL Wynn on 11/26/22 12:54 UA Nitrite Negative Last Edit by Emma Oliveira, RMA on 11/26/22 12:54 UA Urobilinogen 0.2 mg/dL Last Edit by Emma Oliveira, RMA on 11/26/22 12:54 UA Protein 15 mg/dL Last Edit by Emma Oliveira, RMA on 11/26/22 12:54 UA pH 5.5 Last Edit by Emma Oliveira, RMA on 11/26/22 12:54 UA Blood 200 Sher/uL Last Edit by Emma Oliveira, RMA on 11/26/22 12:54 UA Specific Bowie 1.030 Last Edit by Emma Oliveira, RMA on 11/26/22 12:54 UA Ketone Negative Last Edit by Emma Oliveira, RMA on 11/26/22 12:54 UA Bilirubin 0 mg/dL Last Edit by Emma Oliveira, RMA on 11/26/22 12:54 UA Glucose 0 mg/dL Last Edit by Emma Oliveira, RMA on 11/26/22 12:54 Results Reviewed Results Reviewed: Laboratory Last Values Urine pH (Auto) 5.5 11/26/22 12:35 Specific Bowie (Auto) 1.030 11/26/22 12:35 Urine Protein (Auto) 15 mg/dL 11/26/22 12:35 Glucose (UA)(Auto) 0 mg/dL 11/26/22 12:35 Urine Ketones (Auto) Negative 11/26/22 12:35 Urine Blood (Auto) 200 Sher/uL 11/26/22 12:35 Urine Nitrite (Auto) Negative 11/26/22 12:35 Urine Bilirubin (Auto) 0 mg/dL 11/26/22 12:35 Urine Urobilinogen (Auto) 0.2 mg/dL 11/26/22 12:35 Leukocyte Esterase (Auto) 70 Dyllan/uL 11/26/22 12:35 Assessment & Plan Assessment & Plan (1) Phimosis: Code(s): N47.1 - Phimosis (2) Bilateral nephrolithiasis: Code(s): N20.0 - Calculus of kidney Plan Stent removal Initiate topical therapy Orders: Orders AMB Cystoscopy Today N13.30 - Unspecified hydronephrosis AMB Urinalysis Automated Today N20.0 - Calculus of kidney, Z13.9 - Encounter for screening, unspecified Medications: New betamethasone dipropionate 0.05% Thin coat 2 times per day 1 appl topical BID 15 grams 0RF N47.1 - Phimosis, Q55.69 - Other congenital malformation of penis Discontinued solifenacin take 1 tab daily for 7 days while stent in place Discontinued Reason: Patient Completed Course 5 mg PO DAILY 14 tabs 0RF spasm 14 days tamsulosin Discontinued Reason: Patient Completed Course 0.4 mg PO BEDTIME 14 caps 0RF 14 days Patient Instructions: Imaging studies, laboratory and physical exam results were discussed and reviewed in detail. No major barriers to patient understanding were identified. An opportunity to ask questions regarding the treatment plan was provided. All questions were answered. The patient expressed understanding and agreement with the above treatment plan. The patient is aware they should contact our office by phone for worsening of their current condition or the appearance of new urologic symptoms. Compliance is encouraged with any medications and followup testing that is ordered. It is a privilege to participate in the urologic care of your patient. If you have any questions or concerns regarding treatment for the above conditions, or other urologic issues, please do not hesitate to contact me. The office telephone contact is [phone]. This note is constructed using voice recognition software. While every effort has been made to ensure accuracy music typographer errors may have been included. Yours sincerely, Dr David Arreguin MD, [facility] - Urology Providers of Expert, Compassionate Care for the Genitourinary System Coding Level of Care Code Est Pt Level 4 (49588) Diagnoses Phimosis N47.1 Bilateral nephrolithiasis N20.0 CPT Codes Cystoscopy - CPT: 16202-Mbvstnvtip with stent removal ([id number]) Cystoscopy - CPT: DISPOSABLE SCOPE URO-G FLEXIBLE SCOPE ([id number])
== END 2022-11-26 13:44 | disposition home or self-care (01) ==
PROVIDERS: Visit Provider Urology
DX: N47.1 Phimosis (principal); N20.0 Calculus of kidney; N13.30 Unspecified hydronephrosis
CPT/HCPCS: 52310; 99213

== ENCOUNTER → 2022-11-26 12:28 | Outpatient (BNVA) | payer BC, SELFPAY | PROVIDERS: Visit Provider Urology | DX: Z48.816 Encounter for surgical aftercare following surgery on the genitourinary system (principal); N20.0 Calculus of kidney | CPT/HCPCS: 52310; 81003; C1747 ==